=== PATIENT | male | born 1935 | race Caucasian/White ===

== ENCOUNTER 2020-09-15 10:23 | Emergency (ER) | payer MEDICARE, SELFPAY ==
[2020-09-15 10:35] VITALS: BP 139/84; PULSE 83; RESP 16; TEMP 36.2; O2SAT 100
[2020-09-15 10:52] LABS: Glucose Point of Care 78 mg/dl (65-105)
--- NOTE | 2020-09-15 11:06 | ED.MALEGU ---
HPI - Male Genitourinary General Chief complaint: Urogenital-Male Stated complaint: LEAKING URINE/SWEET SMEEL TO URINE Source: patient and RN notes reviewed Limitations: no limitations History of Present Illness HPI Narrative: The patient, who is demented on min meds and cared for by his adult children, presents for possible urinary problems. Family members indicate the patient has a prior history of prostatectomy and is occasionally incontinent. Recently noticed a change in the odor, and are concerned whether the patient has diabetes or infection. Patient was noncommunicative and there is no evidence of pain, fever, vomiting/diarrhea, rash/eruption, blood-so symptoms are mild. Related Data Home Medications Medication Instructions Recorded Confirmed lisinopril 09/15/20 Allergies Allergy/AdvReac Type Severity Reaction Status Date / Time No Known Allergies Allergy Verified 09/15/20 10:34 Review of Systems Review of Systems: Narrative: General/Constitutional: No weight loss,fever Eyes: N0: Redness,discharge Ears/Nose/Throat: No: Epistaxis,ear discharge Respiratory: Denies: Hemoptysis Gastrointestinal: No Vomiting, Bleeding-rectal Skin: No Lumps, eruption Neurologic: No Focal Weakness,Sz Hematologic: Denies: Petechiae/Purpura Psychiatric: No: Suicida ideationl All Other Systems: Reviewed and Negative PMFSH Comments At time of signature, agree with nursing past medical, surgical, social and family history. There is no relevant family history pertinent to the presenting complaint Exam Narrative: Exam Narrative: General Appearance: Well nourished, Conjunctiva clear Ears: External ear normal Nose: Normal nose Mouth/Throat: Normal appearing, Normal lips, Supple Respiratory: Airway patent, No respiratory distress Abdomen: Soft, Non-tender, Musculoskeletal: Mild diffuse decreased ROM; Warm, Dry Neurological: Awake and alert, demented/flat affect Course Vital Signs Vital signs: Vital Signs Temperature 97.2 F L 09/15/20 10:35 Pulse Rate 83 09/15/20 10:35 Respiratory Rate 16 09/15/20 10:35 Blood Pressure 139/84 09/15/20 10:35 Pulse Oximetry 100 09/15/20 10:35 Temperature 97.2 F L 09/15/20 10:35 Pulse Rate 83 09/15/20 10:35 Respiratory Rate 16 09/15/20 10:35 Blood Pressure 139/84 06/23/21 10:35 Pulse Oximetry 100 09/15/20 10:35 MDM - Male Genitourinary Lab Data Labs: Lab Results 09/15/20 Range/Units 10:50 POC Capillary Glucose 78 (65-105) mg/dl Urine Glucose Negative Reference Range: Negative Urine Bilirubin Negative Reference Range: Negative Urine Ketone Negative Reference Range: Negative Urine Specific [place] 1.030 Reference Range:1.001-1.035 Urine Blood Trace Reference Range: Negative * * Urine pH 5.5 Reference Range: 5.0-9.0 Urine Protein Negative Reference Range: Negative Urine Urobilinogen 0.2 Reference Range: 0.2-1.0 Urine Nitrate Negative Reference Range: Negative Urine Leukocyte Negative Reference Range: Negative Urine Color Yellow Reference Range: Yellow Urine Characteristics Clear
== END 2020-09-15 11:14 | disposition home or self-care (01) ==
PROVIDERS: Emergency Provider Emergency Medicine
DX: R32 Unspecified urinary incontinence (principal); Z90.79 Acquired absence of other genital organ(s); I10 Essential (primary) hypertension; F03.90 Unspecified dementia, unspecified severity, without behavioral disturbance, psychotic disturbance, mood disturbance, and anxiety
CPT/HCPCS: 81003; 82948; 99212; G0463